=== PATIENT | female | born 1970 | race Caucasian/White ===

== ENCOUNTER 2025-08-29 10:01 | Emergency (ER) | payer OTHER ==
[~2025-08-29] VITALS: Ht 157.5 cm; Wt 74.0 kg
[2025-08-29 10:09] VITALS: O2SAT 99
[2025-08-29 10:52] LABS: BASOPHILS % 1.1 % (0.0-2.0); CREATININE 0.8 mg/dL (0.6-1.0); EOSINOPHILS % 2.0 % (0.0-5.0); HEMATOCRIT. 35.7 % (36.0-48.0); HEMOGLOBIN. 12.2 g/dL (12.0-16.0); LYMPHOCYTES % 17.8 % (20.0-50.0); MEAN PLATELET VOLUME 7.6 fl (7.4-10.4); MONOCYTES % 9.6 % (2.0-8.0); NEUTROPHILS % 69.5 % (40.0-76.0); PLATELET 96 x1000/uL (130-400); RED BLOOD CELL COUNT 3.24 mill/uL (4.2-5.4); RED CELL DISTRIBUTION WIDTH 17.6 % (11.6-14.6)
[2025-08-29 10:53] LABS: UREA NITROGEN BLOOD 14 mg/dL (9-23)
[2025-08-29 10:54] LABS: ASPARTATE AMINOTRANSFERASE 119 IU/L (<34)
[2025-08-29 10:55] LABS: BILIRUBIN DIRECT 3.6 mg/dL (<=3.0); BILIRUBIN TOTAL 5.9 mg/dL (0.1-1.0); PROTEIN TOTAL 6.6 g/dL (6.0-8.3)
[2025-08-29 11:04] LABS: ADD RBC MORPHOLOGY YES
[2025-08-29 11:36] LABS: PLATELET ESTIMATE DECREASED
[2025-08-29 13:50] LABS: CLARITY URINE TURBID (CLEAR); COLOR URINE DARK YELLOW (YELLOW); GLUCOSE URINE NEGATIVE (NEGATIVE); KETONES URINE 1+ (NEGATIVE); LEUKOCYTE ESTERASE URINE 2+ (NEGATIVE); NITRITE URINE NEGATIVE (NEGATIVE); OCCULT BLOOD URINE 2+ (NEGATIVE); PH URINE 6.0 (4.5-8.0); PROTEIN URINE 1+ (NEGATIVE); SPECIFIC GRAVITY URINE 1.022 (1.005-1.030); UROBILINOGEN URINE 1.0 E.U./dL (0.2-1.0)
[2025-08-29 14:13] LABS: BACTERIA URINE 2+; CALCIUM OXALATE CRYSTALS URINE 1+ /lpf; RBC URINE 0-2 /hpf (0-2); SQUAMOUS EPITHELIAL CELL URINE 3+ /lpf (RARE/1+); YEAST URINE NONE SEEN
[2025-08-29 18:26] VITALS: BP 159/92; PULSE 94; RESP 15; TEMP 36.9; O2SAT 98
[2025-08-29] MEDS ORDERED: CEFTRIAXONE 1GM/50ML 50 ML IV ONE (18:30)
== END 2025-08-29 18:52 | disposition admitted as inpatient to this hospital (09) ==
LOC: ER 10:01 → CANBEDREQ 15:50 → ER 18:52
DX: K74.60 Unspecified cirrhosis of liver (principal); N39.0 Urinary tract infection, site not specified; J90 Pleural effusion, not elsewhere classified; R18.8 Other ascites
CPT/HCPCS: 36415; 74176; 80048; 80076; 81003; 85025; 99285